=== PATIENT | female | born 1950 | race Caucasian/White ===

== ENCOUNTER 2018-02-15 19:23 | Emergency (ER) | payer MEDICARE, BC ==
--- NOTE | 2018-02-15 21:50 | CT ---
CT OF BRAIN PERFORMED WITHOUT CONTRAST ENHANCEMENT: 02/15/18 HISTORY: Head pain. COMPARISON: 05/04/13 study. The ventricular and cisternal system shows fairly age appropriate change. there are no signs of intra cerebral hemorrhage or extra-axial fluid collections. The mastoid air cells and visualized sinuses ap pear clear. IMPRESSION: No acute intracranial abnormalitis. POS: [facility]
--- NOTE | 2018-02-15 21:56 | CT ---
CT OF CERVICAL SPINE PERFORMED WITHOUT CONTRAST ENHANCEMENT: 02/15/18 HISTORY: Neck pain. vertebral bodies are normal in height. There is a somewhat unusual cupping to the inferior end plate of C7 and superior inferior end plates of T1 and superior end plate of T2. It is possible that this is the result of old posttraumatic change but this does to appear acute in nature. The face ts are in normal alignment. There is on evidence of canal or foraminal stenosis. IMPRESSION: No CT evidence of any acute fracture. Somewhat unusual appearance to C7, T1 and T2 which could be dev elopmental or on the basis of old posttraumatic change. This finding appears stable as compared to a 2017 study. POS: [facility]
== END 2018-02-15 23:30 | disposition home or self-care (01) ==
LOC: ERS 19:23
DX: S06.0X0A Concussion without loss of consciousness, initial encounter (principal); S16.1XXA Strain of muscle, fascia and tendon at neck level, initial encounter; K31.84 Gastroparesis; E03.9 Hypothyroidism, unspecified; F32.9 Major depressive disorder, single episode, unspecified; Z79.899 Other long term (current) drug therapy; V69.49XA Driver of heavy transport vehicle injured in collision with other motor vehicles in traffic accident, initial encounter
CPT/HCPCS: 70450; 72125

== ENCOUNTER 2018-08-08 10:31 | Outpatient (CLI) | payer MEDICARE, BC ==
--- NOTE | 2018-08-08 13:38 | CT ---
CT ABDOMEN AND PELVIS WITH ORAL AND IV CONTRAST: Date: 08/08/18 HISTORY: Constipation. Abdominal pain. FINDINGS: Comparison made with exam dated 07/25/16. There are mild dependent changes of the lung bases. There are postop changes of cholecystectomy. Mild prominence of the biliary ducts is likely due to reservoir effect and stable. A couple of subcentime ter low density lesions in the liver are stable. The spleen, pancreas, and adrenal glands are normal. Cysts in the kidneys and 1.0 cm left angiomyolipoma are stable. No free air, free fluid, or lymphadenopathy seen in the abdomen or pelvis. The small bowel loops are not abnormally dilated. There is fecal material in the colon. The patient is post appendectomy. Posto p changes of laminectomy in the lumbar spine are again seen. 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 Degenerative changes in the posterior elements of adjacen t vertebra are again noted. IMPRESSION: Constipation. POS: [facility]
[2018-08-08] MEDS ORDERED: Iopamidol 370 76% 100 ML VIAL ONE (14:04)
== END 2018-08-08 10:32 | disposition home or self-care (01) ==
LOC: BICCT 10:31
PROVIDERS: ATTEND Internal Medicine Gastroenterology
DX: K31.84 Gastroparesis (principal); R10.815 Periumbilic abdominal tenderness; K59.00 Constipation, unspecified
CPT/HCPCS: 74177; 82565

== ENCOUNTER 2019-08-22 14:45 | Outpatient (CLI) | payer MEDICARE, BC ==
--- NOTE | 2019-08-22 15:17 | RAD ---
Exam: 2 views abdomen HISTORY: Chronic constipation COMPARISON: None FINDINGS: Nonspecific bowel gas pattern. No suspicious densities in the abdomen or pelvis. No pneumop eritoneum. No bowel distention or dilatation. No differential air-fluid levels. Postsurgical changes of the upper lumbar spine are noted IMPRESSION: Nonspecific bowel gas pattern
== END 2019-08-22 14:46 | disposition home or self-care (01) ==
LOC: BICRAD 14:45
PROVIDERS: ATTEND Physician Assistant Medical
DX: R10.815 Periumbilic abdominal tenderness (principal); K59.09 Other constipation
CPT/HCPCS: 74019

== ENCOUNTER 2019-09-25 08:21 | Outpatient (CLI) | payer MEDICARE, BC ==
--- NOTE | 2019-09-25 12:31 | NM ---
EXAM: CARDIAC SPECT HISTORY: Chest pain TECHNIQUE: A myocardial perfusion scan was performed using the single isotope 1 day protocol with dangelo hnetium 99m sestamibi. [10 mCi] was injected intravenously for the rest exam followed by 30 mCi for the stress study. Pharmacologic stress with Lexiscan was monitored and interpreted by Dr. Jimenez FINDINGS: Homogeneous tracer distribution is seen in the myocardial segments on stress and rest image s without fixed or reversible defects. Gated SPECT LVEF: 75% Wall motion exam: Normal IMPRESSION: Normal myocardial perfusion scan
[2019-09-25] MEDS ORDERED: Regadenoson 0.4 MG/5 ML SYRINGE ONE (15:27)
== END 2019-09-25 08:22 | disposition home or self-care (01) ==
LOC: NM 08:21
PROVIDERS: ATTEND Internal Medicine
DX: R07.9 Chest pain, unspecified (principal)
CPT/HCPCS: 78452; 93017; A9500; J2785

== ENCOUNTER 2020-10-03 15:13 | Inpatient (IN) | payer MEDICARE, BC ==
[2020-10-03] MEDS ORDERED: Ondansetron PF 4 MG/2 ML Vial ONE (15:19)
[2020-10-03] MEDS ORDERED: HYDROmorphone 0.5 MG/0.5 ML SYRINGE ONE ×2 (15:19→15:25)
--- NOTE | 2020-10-03 15:43 | RAD ---
XR Tib Fib Lt Leg 2 View INDICATION: Kicked in lower leg by a horse COMPARISON:None. FINDINGS: Bones: There is a comminuted spiral fracture involving the distal tibia and fibular shaft. There is d isplacement of the distal fracture fragments anteriorly one full shaft width. There is also a comminuted medial malleolus tibial fracture. No additional fracture is evident Joints: There is no evidence of additional fracture extension into the joint other than the medial ma lleolus fracture. Visualized aspects of the left knee appear intact. Soft tissues: There is soft tissue swelling surrounding the fracture site IMPRESSION: Comminuted spiral fractures of the distal tibia and fibular shafts. Mildly displaced medi al malleolar ankle fracture.
[2020-10-03 15:54] LABS: #Basophils 0.1 thou/uL (0.0-0.2); #Eosinphils 0.2 thou/uL (0.0-0.7); #Lymphocytes 1.3 thou/uL (1.20-3.40); #Monocytes 0.4 thou/uL (0.11-0.59); #Neutrophils 5.3 thou/uL (1.40-6.50); %Basophils 0.9 % (0.0-1.0); %Eosinophils 2.3 % (0.0-10.0); %Lymphocytes 18.3 % (21.0-51.0); %Monocytes 5.2 % (0.0-10.0); %Neutrophils 73.3 % (42.0-75.0); Mean Corpuscular HGB CONC 32.2 g/dL (32.0-36.0); Mean Corpuscular Hemoglobin 30.2 pg (27.0-31.0); Mean Corpuscular Volume 93.7 fL (78.0-98.0); Mean Platelet Volume 7.1 fL (7.4-10.4); Platelet Count 500 thou/uL (130-400); RBC Distribution Width 13.1 % (11.5-14.5); Red Blood Cell (RBC) Count 4.62 mill/uL (4.20-5.40); White Blood Cell (WBC) Count 7.2 thou/uL (4.8-10.8)
[2020-10-03 16:00] LABS: INR-International Normal Ratio 0.9; Prothrombin Time 12.4 sec (12.0-14.7)
[2020-10-03 16:01] LABS: PTT 27.3 sec (22.9-36.1)
[2020-10-03] MEDS ORDERED: Ketamine 50 MG/ML (10ML VIAL) ONE (16:11)
[2020-10-03 16:14] LABS: ALT (SGPT) 27 U/L (8-55); AST (SGOT) 59 U/L (5-34); Albumin 4.1 g/dL (3.4-4.8); Alkaline Phosphatase 66 U/L (40-110); Anion Gap 12 mmol/L (10-20); BUN (Urea Nitrogen) 21 mg/dL (9.8-20.1); Bilirubin, Total 0.5 mg/dL (0.2-1.2); Calc. Creatinine Clearance 0 mL/min (70-130); Calcium 9.1 mg/dL (7.8-10.44); Carbon Dioxide 26 mmol/L (23-31); Chloride 104 mmol/L (98-107); Globulin 2.5 g/dL (2.4-3.5); Glucose 101 mg/dL (80-115); Protein, Total 6.6 g/dL (6.0-8.3); Sodium 138 mmol/L (136-145)
--- NOTE | 2020-10-03 17:20 | RAD ---
Radiograph left leg tibia-fibula 2 views: 10/03/2020 4:57 PM HISTORY: 70-year-old female with acute, traumatic distal tibial and fibular fractures. COMPARISON: 10/03/2020 3:31 PM FINDINGS: The leg has been placed into a splint. The comminuted, significantly displaced fracture of the distal tibial metadiaphysis, oblique spiral fracture of distal fibular diaphysis with displacement, and fracture of medial malleolus, have not changed in alignment. IMPRESSION: 1.) Placement of left leg into splint. 2) no interval change in alignment of the displaced fracture of distal fibular shaft, significantly d isplaced and comminuted fracture of distal tibial shaft and distal metaphysis, and medial malleolar fracture.
--- NOTE | 2020-10-03 17:21 | RAD ---
RADIOGRAPH CHEST 1 VIEW: DATE: 10/03/2020 HISTORY: 70-year-old female for preoperative clearance FINDINGS: There are no airspace densities, pulmonary edema, pneumothorax, or cardiomegaly. The lateral costophr enic angles are sharp. IMPRESSION: No acute cardiopulmonary findings.
[2020-10-03] MEDS ORDERED: Ondansetron ODT 4 MG TAB PO PRN (18:31)
[2020-10-03] MEDS ORDERED: Dextrose 5% in Water 1,000 ML IV PRN (18:31)
[2020-10-03] MEDS ORDERED: Dextrose 50% Abboject 50 ML SYRINGE SLOW IVP PRN (18:31)
[2020-10-03] MEDS ORDERED: traMADol HCl 50 MG TAB PO PRN (18:31)
[2020-10-03] MEDS ORDERED: Ondansetron PF 4 MG/2 ML Vial IVP PRN (18:31)
[2020-10-03] MEDS ORDERED: hydrALAZINE 20 MG/ML VIAL SLOW IVP PRN (18:31)
[2020-10-03] MEDS ORDERED: Acetaminophen 500 MG TAB PO SCH (19:00)
--- NOTE | 2020-10-03 20:28 | HP ---
REQUESTING PHYSICIAN: Dr. Tejada. ATTENDING SURGEON: Dr. Carmona. CONSULTATION: Orthopedics, Dr. Mensah. 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 There were attempting to adjust the animal's saddle when the animal turned and kicked the patient in her left layne. The patient was not on the animal. She was not thrown from the animal. The patient was originally activated as a level 2 trauma as they thought that she was thrown from the animal, but this was incorrect. The patient denied any loss of consciousness or hitting her head or any syncopal episodes prior to her injury. She was brought to the emergency department by ground EMS where she underwent evaluation and examination and was noted to have a left distal tibia and fibular fracture, at which time we were asked to evaluate the patient for admission and obtain Orthopedic consultation. ALLERGIES: NONE. CURRENT MEDICATIONS: The patient is trying to find her medication list. We will have the nurses help with reconciling her home medications. PAST MEDICAL HISTORY: Gastroparesis, hypothyroidism, depression. PAST SURGICAL HISTORY: Back surgery x3, appendectomy, cholecystectomy, tonsillectomy, bowel surgery for small bowel obstruction. SOCIAL HISTORY: The patient lives independently, alone, in [place]. She drinks about once a week. Denies drug or tobacco use. REVIEW OF SYSTEMS: Ten-point review of systems is negative as otherwise stated. PHYSICAL EXAMINATION: VITAL SIGNS: Blood pressure 120/58, heart rate 67, respirations 13, oxygen saturation is 100% on room air, temperature is 98.6. GENERAL: The patient is resting comfortably in bed. She is awake, alert, conversant, appropriate. [place] Coma Scale is 15. HEENT: Head is normocephalic, atraumatic. Eyes; extraocular motions intact. PERRLA bilaterally. Ears are atraumatic without discharge. Nose is atraumatic without discharge. Oropharynx is clear. NECK: Nontender. Trachea is midline with no JVD. CHEST: Clear to auscultation with good inspiratory and expiratory effort. HEART: Regular rate and rhythm. ABDOMEN: Soft, flat, nontender with active bowel sounds. PELVIS: Stable. EXTREMITIES: Neurovascularly intact x4. Left lower extremity is immobilized in a posterior splint. She is neurovascularly intact. There are no signs of compartment syndrome. BACK: Atraumatic and nontender by report. LABORATORY FINDINGS: White blood cell count is 7.2, hemoglobin 14.0, hematocrit 43.3, platelets 500. Sodium 138, potassium 4.0, chloride 104, CO2 of 26, BUN 21, creatinine 0.86, glucose 101. LFTs are unremarkable. PT 12.4, INR 0.9, PTT 27.3. RADIOGRAPHIC REPORTS: AP chest x-ray shows no acute cardiopulmonary findings. Views of the left tibia and fibula show displaced fracture of the distal fibular shaft, significantly displaced and comminuted fracture of the distal tibial shaft and distal metaphysis and medial malleolar fracture. ASSESSMENT: 1. Status post being kicked by a horse. 2. Left distal tibia and fibular fractures. 3. Acute pain secondary to above. PLAN: Plan will be to admit the patient to the surgical floor. We will make her n.p.o. after midnight. We will do pain control, pulmonary toilet, gastritis and mechanical VTE prophylaxis. Dr. Mensah was notified of this patient. He will see her in the morning. The patient will likely undergo surgical intervention tomorrow. The evaluation, examination, laboratory and radiographic findings were discussed with Dr. Carmona prior to this dictation. Job ID: [id number]
[2020-10-03] MEDS: Ibuprofen 600 MG TAB PO SCH (20:34)
[2020-10-03] MEDS: Famotidine 20 MG TAB PO SCH (20:35)
[2020-10-03] MEDS: Cyclobenzaprine 10 MG TAB PO PRN (20:35)
[2020-10-03] MEDS: traMADol HCl 50 MG TAB PO PRN (20:35)
[2020-10-03] MEDS ORDERED: Plecanatide [Trulance] 3 MG Tablet PO PRN (22:49)
[2020-10-03] MEDS ORDERED: lamoTRIgine 100 MG TAB PO SCH (23:00)
[2020-10-03] MEDS ORDERED: clonazePAM 0.5 MG TAB PO SCH (23:00)
[2020-10-03] MEDS ORDERED: traZODone HCl 50 MG TAB PO SCH (23:00)
[2020-10-03] MEDS: Acetaminophen 500 MG TAB PO SCH (23:11)
[2020-10-04 01:22] VITALS: BMI 18.7
[2020-10-04] MEDS: Sodium Chloride 0.9% 1,000 ML IV SCH ×2 (01:48→06:34)
[2020-10-04 02:13] LABS: SARS-CoV-2 MS2 Positive; SARS-CoV-2 N Gene Negative; SARS-CoV-2 S Gene Negative; SARS-CoV-2 by NAA Not Detected (NotDetected); SARS-CoV-2 orf1ab Negative
[2020-10-04] MEDS: Ibuprofen 600 MG TAB PO SCH ×3 (02:39→18:05)
[2020-10-04] MEDS: traMADol HCl 50 MG TAB PO PRN (02:40)
--- NOTE | 2020-10-04 04:58 | CON ---
DATE OF CONSULTATION: 10/03/2020 CHIEF COMPLAINT: Left ankle pain. HISTORY OF PRESENT ILLNESS: Ms. Cheatham is a 70-year-old female who has been injured by a horse. She thinks the horse may have kicked her or at least stepped on her leg. She has pain and had deformity of her distal tibia and fibula. She has had other horse accidents in the past including a back injury which required surgery. She was taken to the emergency department by EMS. X-rays have shown a distal tibia and fibula fracture. She has been splinted. She has had pain control. She is currently resting comfortably and eating dinner. She is under no apparent distress currently. PAST MEDICAL HISTORY: Includes hypothyroidism and gastroparesis. PAST SURGICAL HISTORY: Previous lumbar back surgery, left shoulder replacement surgery, appendectomy, cholecystectomy, tonsillectomy. PSYCHIATRIC HISTORY: Includes depression. SOCIAL HISTORY: The patient drinks alcohol. She denies drug use or tobacco use. ALLERGIES: NO KNOWN DRUG ALLERGIES. MEDICATIONS: None. DIAGNOSTIC STUDIES: X-rays of the left distal tibia demonstrate a fracture of the distal tibia with displacement. There is intra-articular involvement with a fracture line that enters the ankle mortise. The medial malleolus also appears to be fractured distally. The fibula is fractured and displaced. PHYSICAL EXAMINATION: VITAL SIGNS: Temperature is 98.6, respiratory rate of 18, pulse is 72, blood pressure is 163/71. GENERAL: The patient is alert, oriented, in no apparent distress. Breathing comfortably. RESPIRATORY: Equal chest rise. ABDOMEN: Soft, nontender, nondistended. MUSCULOSKELETAL: The patient's left leg is splinted. She is able to flex and extend the toes. She has intact sensation distally. Her splint is intact. Foot is warm and well perfused. Upper extremities are atraumatic. IMPRESSION: Left distal tibia and fibula fracture, intra-articular. PLAN: At this point, the patient will require surgery. I will plan for open reduction and internal fixation of the distal tibia and fibula tomorrow morning. She will be kept comfortable tonight. She has been splinted. She will be n.p.o. She will have DVT prophylaxis. Risks have been reviewed, which do include infection, pain, nerve or vascular injury, wound complications, need for hardware removal, and others. Job ID: [id number]
[2020-10-04] MEDS: Acetaminophen 500 MG TAB PO SCH ×3 (05:09→18:05)
[2020-10-04] MEDS: Levothyroxine Sodium 125 MCG TAB PO SCH (05:10)
[2020-10-04] MEDS: Cyclobenzaprine 10 MG TAB PO PRN (05:10)
[2020-10-04 05:29] LABS: #Eosinphils 0.2 thou/uL (0.0-0.7); #Lymphocytes 0.9 thou/uL (1.20-3.40); #Monocytes 0.4 thou/uL (0.11-0.59); %Basophils 0.7 % (0.0-1.0); %Eosinophils 2.9 % (0.0-10.0); %Lymphocytes 13.6 % (21.0-51.0); %Monocytes 5.6 % (0.0-10.0); %Neutrophils 77.2 % (42.0-75.0); Hemoglobin 11.9 g/dL (12.0-16.0); Mean Corpuscular HGB CONC 31.2 g/dL (32.0-36.0); Mean Corpuscular Hemoglobin 29.5 pg (27.0-31.0); Mean Corpuscular Volume 94.5 fL (78.0-98.0); Platelet Count 403 thou/uL (130-400); RBC Distribution Width 13.2 % (11.5-14.5); Red Blood Cell (RBC) Count 4.02 mill/uL (4.20-5.40); White Blood Cell (WBC) Count 6.4 thou/uL (4.8-10.8)
[2020-10-04 05:53] LABS: Anion Gap 10 mmol/L (10-20); BUN (Urea Nitrogen) 14 mg/dL (9.8-20.1); Calc. Creatinine Clearance 66 mL/min (70-130); Calcium 7.6 mg/dL (7.8-10.44); Carbon Dioxide 24 mmol/L (23-31); Chloride 105 mmol/L (98-107); Glucose 93 mg/dL (80-115); Magnesium 1.9 mg/dL (1.6-2.6); Phosphorus 3.3 mg/dL (2.3-4.7); Potassium 4.1 mmol/L (3.5-5.1); Sodium 135 mmol/L (136-145)
[2020-10-04] MEDS ORDERED: Fentanyl 100 MCG/2 ML VIAL ONE ×2 (07:38→10:46)
[2020-10-04] MEDS: Famotidine 20 MG TAB PO SCH ×2 (07:46→21:13)
[2020-10-04] MEDS ORDERED: CEFAZOLIN 2 GM in Premix Bag 1 BAG IVPB SCH ×2 (08:00→14:00)
[2020-10-04] MEDS ORDERED: Midazolam HCl 2 mg/2 ml Vial ONE (08:03)
[2020-10-04] MEDS ORDERED: Bupivacaine PF 0.5% 30 ML VIAL ONE (08:53)
[2020-10-04] MEDS ORDERED: Lidocaine 1% w/Epinephrine 1:100K 20 ML VIAL ONE (08:53)
[2020-10-04] MEDS ORDERED: Lifitegrast [Xiidra] 1 EACH Droperette EA EYE SCH (09:00)
--- NOTE | 2020-10-04 10:05 | RAD ---
EXAM: XR Tib Fib Lt Leg 2 View DATE: 10/04/2020 12:00 AM INDICATION: ORIF of left tibia COMPARISON: Prior exam dated October 03, 2020. FINDINGS: 4 separate fluoroscopic spot images were obtained of the left foreleg. Total fluoroscopic time was 27 .1 seconds. Total exposure was 0.60 mgy. Since the comparison examination, there has been interval open reduction internal fixation of the comminuted distal tibia-fibula fractures. Fracture alignment is near anatomic. The instrumentation projects in expected position. Impression: Interval ORIF of the left distal tibia and fibula fractures.
[2020-10-04] MEDS ORDERED: Promethazine HCl 25 MG/ML VIAL IM PRN (10:34)
[2020-10-04] MEDS ORDERED: Promethazine HCl 25 MG/ML VIAL SLOW IVP PRN (10:34)
[2020-10-04] MEDS ORDERED: Ondansetron HCl/PF 4 MG/2 ML Vial IVP PRN (10:34)
[2020-10-04] MEDS ORDERED: PROPOFOL 200 MG/20 ML VIAL ONE (10:52)
[2020-10-04] MEDS ORDERED: Rocuronium Bromide 10 MG/ML (10ML VIAL) ONE (10:52)
[2020-10-04] MEDS ORDERED: Ketorolac Tromethamine 30 MG/ML VIAL ONE (10:52)
[2020-10-04] MEDS ORDERED: Ondansetron PF 4 MG/2 ML Vial ONE (10:52)
[2020-10-04] MEDS ORDERED: Dexamethasone 20 MG/5 ML VIAL ONE (10:52)
[2020-10-04] MEDS ORDERED: Glycopyrrolate 0.2 MG/ML 5 ML SYRINGE ONE (10:52)
[2020-10-04] MEDS ORDERED: Lidocaine 1% PF 5 ML VIAL ONE (10:52)
[2020-10-04] MEDS: clonazePAM 0.5 MG TAB PO SCH (11:20)
[2020-10-04] MEDS: Bupropion 150 MG SR TAB PO SCH (11:20)
--- NOTE | 2020-10-04 11:43 | OP ---
DATE OF PROCEDURE: 10/04/2020 PROCEDURE PERFORMED: Open reduction and internal fixation of left distal tibia and fibula fracture. PREOPERATIVE DIAGNOSIS: Left distal tibial plafond fracture with fibula fracture. POSTOPERATIVE DIAGNOSIS: Left distal tibial plafond fracture with fibula fracture. COMPLICATIONS: None. ESTIMATED BLOOD LOSS: 50 mL. IMPLANTS: Synthes medial distal tibia plate with multiple locking and nonlocking screws as well as a distal fibular plate with locking and nonlocking screws. INDICATIONS: Ms. Cheatham is a 70-year-old female, who was kicked by a horse. She fractured her distal tibia and fibula. She had a highly comminuted and displaced fracture, which required internal fixation. She has been indicated for holiness of anatomic alignment and promotion of healing. Risks have been reviewed, which include wound complication, nerve or vascular injury, need for further surgery, nonunion, malunion, posttraumatic arthritis, and others. DESCRIPTION OF PROCEDURE: Ms. Cheatham was identified in the preoperative holding area. Her correct extremity was marked. She was carried to the operating room. She was positioned supine. General anesthesia was induced. A multidisciplinary time-out was performed. The left lower extremity was prepped and draped in sterile fashion. We began the procedure with a medial approach to the distal tibia. We dissected down sharply to the bony level. We protected the neurovascular structures. At this point, we exposed the distal medial malleolar fracture. This was repaired with suture as the fracture fragment was very small. We then reduced the fracture line more proximally. This was reduced with a clamp and longitudinal traction. We took x-ray images confirming that we had an anatomic reduction. At this point, we applied a medial distal tibial plate. We placed multiple screws distally and multiple screws proximally. We locked the plate to the bone. We took images, confirmed we had a good reduction in orthogonal planes and the hardware was adequate. Once we filled all appropriate screw holes, we thoroughly irrigated this wound and closed in layers. Interrupted sutures were used for the skin. We then moved to the lateral side. We made an incision over the distal fibula, dissecting down to the bony level. Again, we encountered a highly comminuted distal fibula fracture. We pulled traction and reduced the fibula back to its anatomic position. We held this with clamps. We then applied our lateral fibular plate. Multiple screws were placed proximally and distally, locking the plate to the bone. Again, we took x-ray images. We thoroughly irrigated with copious lavage once complete. We then closed with a 2-0 Vicryl suture and interrupted nylon suture. A sterile dressing and a splint were placed. The patient was taken to the recovery room in good condition without complication at this point. Job ID: [id number]
[2020-10-04] MEDS: CEFAZOLIN 2 GM in Premix Bag 1 BAG IVPB SCH ×2 (15:46→23:59)
[2020-10-04] MEDS ORDERED: clonazePAM 0.5 MG TAB PO SCH (21:00)
[2020-10-04] MEDS ORDERED: Melatonin 3 MG TAB PO SCH (21:00)
[2020-10-04] MEDS ORDERED: Fluticasone Propionate Nasal Spray 16 gm Bottle NASAL SCH (21:00)
[2020-10-04] MEDS ORDERED: lamoTRIgine 100 MG TAB PO SCH (21:00)
[2020-10-04] MEDS ORDERED: Thiamine 100 MG TAB PO SCH (21:00)
[2020-10-04] MEDS ORDERED: traZODone HCl 50 MG TAB PO SCH (21:00)
[2020-10-04] MEDS ORDERED: Loratadine 10 MG TAB PO SCH (21:00)
[2020-10-05] MEDS: Acetaminophen 500 MG TAB PO SCH ×4 (00:06→18:08)
[2020-10-05] MEDS: Ibuprofen 600 MG TAB PO SCH ×2 (05:34→12:12)
[2020-10-05] MEDS: Levothyroxine Sodium 125 MCG TAB PO SCH (06:09)
[2020-10-05] MEDS: Famotidine 20 MG TAB PO SCH (08:10)
[2020-10-05] MEDS: clonazePAM 0.5 MG TAB PO SCH (08:10)
[2020-10-05] MEDS: Bupropion 150 MG SR TAB PO SCH (08:10)
[2020-10-05 16:44] VITALS: BP 138/72; TEMP 98.2
[2020-10-05] MEDS: traMADol HCl 50 MG TAB PO PRN (18:12)
--- NOTE | 2020-10-06 09:59 | PQF ---
x CLINICAL DOCUMENTATION CLARIFICATION FORM: Dear PILO Judge Date: 10.06.20 Please exercise your independent, professional judgment in responding to the clarification form. Clinical indicators are provided on the bottom of this form for your review. Please check appropriate box(es): [ x ] Underweight without malnutrition [ ] Cachexia [ ] Insignificant BMI [ ] Other diagnosis [ ] Unable to determine For continuity of documentation, please document condition throughout progress notes and discharge summary. Thank You. To be completed by CDI/Coding staff for physician review: CLINICAL INDICATORS - SIGNS / SYMPTOMS / LABS / RESULTS AND LOCATION IN MR BMII 18.7 10.05 Nutrition Therapy Assessment (ANK) * Visibly thin No recent weights in EMR to assess wt status at this time RISK FACTORS / RESULTS AND LOCATION IN MR ED: *psychiatric hx depression * in-patient psychiatric admission 10.03 H&P (Michele): * PMH Gastroparesis; hypothyroidism, depression TREATMENT / RESULTS AND LOCATION IN MR CPOE: Nutrition Therapy Assessment (ANK 10-05) 1. Continue regular diet. 2. Supplement ensure enlive BID for wound healing. 3. Bowel regimen/anti-emetics prn. CDS Signature: Kiana Louise RN, CCDS Phone #: [phone] [email or web address] This is a permanent part of the Medical Record [facility]
== END 2020-10-05 19:00 | disposition home or self-care (01) | DRG 494 ==
LOC: ERS 15:13 → SURG A 16:07
PROVIDERS: ADMIT Specialist; ATTEND Specialist
PROC: 0QSH04Z Reposition Left Tibia with Internal Fixation Device, Open Approach (ICD-10-PCS; principal; 2020-10-04)
PROC: 0QSK04Z Reposition Left Fibula with Internal Fixation Device, Open Approach (ICD-10-PCS; 2020-10-04)
PROC: 0QSHXZZ Reposition Left Tibia, External Approach (ICD-10-PCS; 2020-10-04)
DX: S82.252A Displaced comminuted fracture of shaft of left tibia, initial encounter for closed fracture (principal); W55.12XA Struck by horse, initial encounter; K31.84 Gastroparesis; Z20.828 Contact with and (suspected) exposure to other viral communicable diseases; F32.9 Major depressive disorder, single episode, unspecified; E03.9 Hypothyroidism, unspecified; S82.452A Displaced comminuted fracture of shaft of left fibula, initial encounter for closed fracture; Z96.612 Presence of left artificial shoulder joint; Z90.49 Acquired absence of other specified parts of digestive tract; Z79.899 Other long term (current) drug therapy; Z79.890 Hormone replacement therapy
CPT/HCPCS: 29515; 36415; 71045; 76000; 80048; 80053; 83735; 84100; 85025; 85610; 85730; 86850; 86900; 86901; 87635; 96374; 96375; 99152; C1713; G0390; J0690; J1100; J1170; J1885; J2250; J2405; J2704; J3010; S0020; U0003

== ENCOUNTER 2021-04-19 10:21 | Day surgery (SDC) | payer MEDICARE, BC ==
[2021-04-19] MEDS ORDERED: Lidocaine 1% (PF) 30 ML VIAL ONE (12:31)
[2021-04-19] MEDS ORDERED: Lidocaine 1% PF 5 ML VIAL ONE (13:00)
[2021-04-19] MEDS ORDERED: Ondansetron PF 4 MG/2 ML Vial ONE (13:00)
[2021-04-19] MEDS ORDERED: PROPOFOL 200 MG/20 ML VIAL ONE (13:00)
[2021-04-19] MEDS ORDERED: Fentanyl 100 MCG/2 ML VIAL ONE ×3 (13:10→14:30)
[2021-04-19] MEDS ORDERED: EPINEPHrine 1 MG/ML AMP ONE (13:44)
[2021-04-19] MEDS ORDERED: Bupivacaine PF 0.5% 30 ML VIAL ONE (13:44)
== END 2021-04-19 16:38 | disposition home or self-care (01) ==
LOC: SDC 10:21
PROVIDERS: ATTEND Orthopaedic Surgery
PROC: 0SPG04Z Removal of Internal Fixation Device from Left Ankle Joint, Open Approach (ICD-10-PCS; principal; 2021-04-19)
DX: T84.84XA Pain due to internal orthopedic prosthetic devices, implants and grafts, initial encounter (principal); M19.90 Unspecified osteoarthritis, unspecified site; E11.9 Type 2 diabetes mellitus without complications; E03.9 Hypothyroidism, unspecified; Z79.810 Long term (current) use of selective estrogen receptor modulators (SERMs); Z79.899 Other long term (current) drug therapy; Z88.5 Allergy status to narcotic agent; Z91.5 Personal history of self-harm
CPT/HCPCS: J0171; J0690; J2001; J2405; J2704; J3010; S0020

== ENCOUNTER 2023-11-23 11:37 | Outpatient (CLI) | payer MEDICARE | END 2023-11-23 11:38 | disposition home or self-care (01) | LOC: SCSMRI 11:37 | PROVIDERS: ATTEND Neurological Surgery | DX: M54.6 Pain in thoracic spine (principal); M51.16 Intervertebral disc disorders with radiculopathy, lumbar region; Q76.49 Other congenital malformations of spine, not associated with scoliosis; M51.27 Other intervertebral disc displacement, lumbosacral region; M48.07 Spinal stenosis, lumbosacral region; S32.011D Stable burst fracture of first lumbar vertebra, subsequent encounter for fracture with routine healing | CPT/HCPCS: 72157; 72158 ==

== ENCOUNTER 2024-07-26 09:54 | Outpatient (CLI) | payer MEDICARE | END 2024-07-26 09:55 | disposition home or self-care (01) | LOC: SCSRAD 09:54 | PROVIDERS: ATTEND Orthopaedic Surgery | DX: M54.50 Low back pain, unspecified (principal); M54.6 Pain in thoracic spine | CPT/HCPCS: 72072; 72100 ==

== ENCOUNTER 2025-07-11 13:33 | Outpatient (CLI) | payer MEDICARE | END 2025-07-11 13:34 | disposition home or self-care (01) | LOC: SCSBT 13:33 | PROVIDERS: ATTEND Internal Medicine | DX: M81.0 Age-related osteoporosis without current pathological fracture (principal); M85.852 Other specified disorders of bone density and structure, left thigh; M85.851 Other specified disorders of bone density and structure, right thigh | CPT/HCPCS: 77080 ==